=== PATIENT | female | born 1980 | race Two or more races ===

== ENCOUNTER 2023-10-14 12:53 | Emergency (ER) | payer MEDICAID, OTHER ==
[~2023-10-14] VITALS: Ht 160 cm; Wt 88.4 kg
[2023-10-14 15:17] LABS: Urine Bacteria FEW /hpf (None Seen); Urine Blood 3+ /uL (Negative); Urine Clarity Turbid (Clear); Urine Color Yellow (Yellow); Urine Mucus MANY (None Seen); Urine Protein, UAD 1+ (Negative); Urine Urobilinogen Normal (Negative); Urine WBC 4 /hpf (0 - 5)
[2023-10-14 15:29] VITALS: BP 108/61; PULSE 84; RESP 16; O2SAT 100
[2023-10-14] MEDS: KETOROLAC TROMETH 60MG/2ML VIAL IM ONE (15:30)
[2023-10-14] MEDS ORDERED: IBUP-1456 PO (15:48)
[2023-10-14] MEDS ORDERED: ACET500T58 PO (15:48)
[2023-10-14] MEDS ORDERED: NITR-87 PO (15:49)
== END 2023-10-14 15:54 | disposition home or self-care (01) ==
LOC: ER 12:53
DX: N39.0 Urinary tract infection, site not specified (principal); R51.9 Headache, unspecified; H57.11 Ocular pain, right eye; V49.49XA Driver injured in collision with other motor vehicles in traffic accident, initial encounter; Y93.89 Activity, other specified; Y92.89 Other specified places as the place of occurrence of the external cause; Y99.8 Other external cause status
CPT/HCPCS: 70450; 81001; 96372; 99285; J1885